=== PATIENT | female | born 1930 | race Caucasian/White ===

== ENCOUNTER 2017-03-18 13:23 | Inpatient (IN) | payer OTHER ==
[~2017-03-18] VITALS: Ht 157.5 cm; Wt 87.2 kg
[~2017-03-18 13:23] MED LIST: ADULT LOW DOSE81 M1 PO; ALEVE220 MG PO; AMLODIPINE BESYL5 MG PO; CALTRATE600 MG PO; CARVEDILOL12.5 MG PO; CARVEDILOL6.25 MG PO; CELEBREX200 MG PO; CRESTOR10 MG PO; DOCUSATE SODIU100 MG PO; ECOTRIN325 MG PO; FOSAMAX70 MG PO; HYDROCHLOROTHIA25 MG PO; HYDROCODON-ACE1 EA11 PO; LASIX40 MG PO; LATANOPROST2.5 ML BOTH EYES; PANTOPRAZOLE SO40 MG PO; POTASSIUM CHLO10 ME3 PO; TYLENOL REGULA325 MG PO
[2017-03-18 14:43] LABS: EOSINOPHIL COUNT 0.1 K/uL (0-0.3); HEMATOCRIT 34.9 % (36.0-46.0); IMMATURE GRANULOCYTE (%) 0.2 % (0.0-0.7); INSTRUMENT ABS NEUTROPHIL CT 3.7 K/uL; LYMPHOCYTE COUNT 0.6 K/uL (1.0-2.8); MCH 30.1 PG (29.0-34.0); MCHC 33.2 G/DL (30.0-36.0); MCV 90.4 FL (83-99); MEAN PLAT.VOLUME 8.9 uM^3 (9.5-12.4); MONOCYTE (%) 5.1 % (3-12); MONOCYTE COUNT 0.2 K/uL (0-0.8); NEUTROPHIL (%) 79.3 % (45-76); NEUTROPHIL COUNT 3.7 K/uL (1.8-6.4); PLATELET COUNT 171 K/uL (156-360); RBC DIS.WIDTH-CV 12.2 % (11.8-14.6); RBC DIS.WIDTH-SD 40.3 % (39-53); RED BLOOD COUNT 3.86 M/uL (3.80-5.20); WHITE BLOOD COUNT 4.7 K/uL (4.1-10.2)
[2017-03-18 14:53] LABS: INTER. NORMALIZED RATIO 1.1; PROTHROMBIN TIME 10.8 (9.2-11.2); PTT 27.8 (25-32)
[2017-03-18 14:54] LABS: CHLORIDE 100 mEq/L (99-109); POTASSIUM 5.8 mEq/L (3.7-5.4); SODIUM 133 mEq/L (136-147)
[2017-03-18 14:55] LABS: GLUCOSE 99 mg/dL (70-99)
[2017-03-18 14:57] LABS: ANION GAP 9 MEQ/L (2-14)
[2017-03-18 14:59] LABS: GFR ESTIMATE (CALCULATED) 41 mL/min/
[2017-03-18 15:00] LABS: UREA NITROGEN (BUN) 19 mg/dL (9-23)
[2017-03-18 15:04] LABS: TROP-I INTERPRETATION NEGATIVE; TROPONIN-I 0.04 ng/mL (0.0-0.30)
[2017-03-18] MEDS ORDERED: VITAMIN B-6100 MG PO (17:05)
[2017-03-18] MEDS ORDERED: LO-DOSE ASPIRIN81 M2 PO (17:05)
[2017-03-18 17:22] VITALS: BP 163/92
[2017-03-18 19:23] VITALS: BP 152/96
[2017-03-18 21:59] LABS: TROP-I INTERPRETATION POSITIVE; TROPONIN-I 0.62 ng/mL (0.0-0.30)
[2017-03-18 23:20] LABS: INTER. NORMALIZED RATIO 1.1; PROTHROMBIN TIME 11.4 (9.2-11.2); PTT 28.7 (25-32)
[2017-03-19] VITALS (10 sets, daily range): BP systolic 97–133; BP diastolic 59–91
[2017-03-19 02:42] LABS: TROP-I INTERPRETATION POSITIVE
[2017-03-19 07:23] LABS: INTER. NORMALIZED RATIO 1.1; PROTHROMBIN TIME 11.6 (9.2-11.2)
[2017-03-19 07:26] LABS: PTT 82.9 (25-32)
[2017-03-19 08:16] LABS: TROP-I INTERPRETATION POSITIVE; TROPONIN-I 0.63 ng/mL (0.0-0.30)
[2017-03-19 09:03] LABS: ALKALINE PHOSPHATASE 61 IU/L (3-129); ANION GAP 8 MEQ/L (2-14); CHLORIDE 95 MEQ/L (99-109); GFR ESTIMATE (CALCULATED) 38 mL/min/; GLUCOSE 110 mg/dL (70-99); LIPASE 49 U/L (1.0-51.0); SAMPLE HEMOLYSIS CHECK 0; SAMPLE ICTERIC CHECK 0; SAMPLE LIPEMIA CHECK 0; SODIUM 128 MEQ/L (136-147); TOTAL BILIRUBIN 1.9 MG/DL (0.0-1.0); UREA NITROGEN (BUN) 21 mg/dL (9-23)
[2017-03-19 09:04] LABS: POTASSIUM 4.3 MEQ/L (3.7-5.4)
[2017-03-19 10:27] LABS: EOSINOPHIL (%) 0 % (0-5); HEMATOCRIT 33.9 % (36.0-46.0); IMMATURE GRANULOCYTE (%) 0.3 % (0.0-0.7); INSTRUMENT ABS NEUTROPHIL CT 7.9 K/uL; LYMPHOCYTE COUNT 0.6 K/uL (1.0-2.8); MCH 29.8 PG (29.0-34.0); MCHC 32.7 G/DL (30.0-36.0); MCV 91.1 FL (83-99); MEAN PLAT.VOLUME 9.9 uM^3 (9.5-12.4); MONOCYTE (%) 6.6 % (3-12); MONOCYTE COUNT 0.6 K/uL (0-0.8); NEUTROPHIL (%) 86.8 % (45-76); NEUTROPHIL COUNT 7.9 K/uL (1.8-6.4); PLATELET COUNT 178 K/uL (156-360); RBC DIS.WIDTH-CV 12.2 % (11.8-14.6); RBC DIS.WIDTH-SD 40.7 % (39-53); RED BLOOD COUNT 3.72 M/uL (3.80-5.20); WHITE BLOOD COUNT 9.1 K/uL (4.1-10.2)
[2017-03-19 23:22] LABS: EOSINOPHIL (%) 2.2 % (0-5); EOSINOPHIL COUNT 0.1 K/uL (0-0.3); HEMATOCRIT 31.8 % (36.0-46.0); IMMATURE GRANULOCYTE (%) 0.4 % (0.0-0.7); INSTRUMENT ABS NEUTROPHIL CT 3.7 K/uL; LYMPHOCYTE COUNT 0.9 K/uL (1.0-2.8); MCH 30.2 PG (29.0-34.0); MCHC 33.6 G/DL (30.0-36.0); MCV 89.8 FL (83-99); MEAN PLAT.VOLUME 9.8 uM^3 (9.5-12.4); MONOCYTE (%) 10.3 % (3-12); MONOCYTE COUNT 0.6 K/uL (0-0.8); NEUTROPHIL (%) 69.7 % (45-76); NEUTROPHIL COUNT 3.7 K/uL (1.8-6.4); PLATELET COUNT 133 K/uL (156-360); RBC DIS.WIDTH-CV 12.2 % (11.8-14.6); RBC DIS.WIDTH-SD 40.3 % (39-53); RED BLOOD COUNT 3.54 M/uL (3.80-5.20); WHITE BLOOD COUNT 5.4 K/uL (4.1-10.2)
[2017-03-19 23:30] LABS: CHLORIDE 101 mEq/L (99-109); POTASSIUM 3.9 mEq/L (3.7-5.4); SODIUM 133 mEq/L (136-147)
[2017-03-19 23:32] LABS: GLUCOSE 83 mg/dL (70-99)
[2017-03-19 23:34] LABS: ANION GAP 9 MEQ/L (2-14); TOTAL BILIRUBIN 2.1 mg/dL (0.0-1.0)
[2017-03-19 23:36] LABS: ALKALINE PHOSPHATASE 58 IU/L (3-129); GFR ESTIMATE (CALCULATED) 41 mL/min/
[2017-03-19 23:37] LABS: UREA NITROGEN (BUN) 19 mg/dL (9-23)
[2017-03-20 01:00] VITALS: BP 102/65
[2017-03-20 04:46] VITALS: BP 108/64
[2017-03-20 07:17] VITALS: BP 124/76
[2017-03-20 08:18] LABS: EOSINOPHIL (%) 4.3 % (0-5); EOSINOPHIL COUNT 0.2 K/uL (0-0.3); HEMATOCRIT 31.1 % (36.0-46.0); IMMATURE GRANULOCYTE (%) 0.4 % (0.0-0.7); INSTRUMENT ABS NEUTROPHIL CT 3.1 K/uL; LYMPHOCYTE COUNT 0.8 K/uL (1.0-2.8); MCH 31.1 PG (29.0-34.0); MCHC 33.8 G/DL (30.0-36.0); MEAN PLAT.VOLUME 9.8 uM^3 (9.5-12.4); MONOCYTE (%) 10.2 % (3-12); MONOCYTE COUNT 0.5 K/uL (0-0.8); NEUTROPHIL (%) 67.9 % (45-76); NEUTROPHIL COUNT 3.1 K/uL (1.8-6.4); PLATELET COUNT 129 K/uL (156-360); RBC DIS.WIDTH-CV 12.7 % (11.8-14.6); RBC DIS.WIDTH-SD 42.4 % (39-53); RED BLOOD COUNT 3.38 M/uL (3.80-5.20); WHITE BLOOD COUNT 4.6 K/uL (4.1-10.2)
[2017-03-20 11:43] LABS: ALKALINE PHOSPHATASE 51 IU/L (3-129); ANION GAP 9 MEQ/L (2-14); GFR ESTIMATE (CALCULATED) 45 mL/min/; GLUCOSE 85 mg/dL (70-99); POTASSIUM 4.5 MEQ/L (3.7-5.4); SAMPLE HEMOLYSIS CHECK 0; SAMPLE ICTERIC CHECK 0; SAMPLE LIPEMIA CHECK 0; SODIUM 137 MEQ/L (136-147); TOTAL BILIRUBIN 1.9 MG/DL (0.0-1.0); UREA NITROGEN (BUN) 19 mg/dL (9-23)
[2017-03-20 11:44] LABS: CHLORIDE 105 MEQ/L (99-109)
[2017-03-20 11:47] VITALS: BP 120/71
[2017-03-20 15:30] LABS: INTER. NORMALIZED RATIO 1.2; PROTHROMBIN TIME 12.5 (9.2-11.2)
[2017-03-20 15:45] VITALS: BP 114/64
[2017-03-20 15:57] LABS: PTT 142.4 (25-32)
[2017-03-20 19:30] VITALS: BP 130/73
[2017-03-20 21:00] LABS: INTER. NORMALIZED RATIO 1.2
[2017-03-20 21:02] LABS: PTT 75.8 (25-32)
[2017-03-21] VITALS (8 sets, daily range): BP systolic 125–170; BP diastolic 64–89
[2017-03-21 03:44] LABS: HEMATOCRIT 30.5 % (36.0-46.0); MCH 30.2 PG (29.0-34.0); MCHC 32.8 G/DL (30.0-36.0); MCV 92.1 FL (83-99); MEAN PLAT.VOLUME 9.8 uM^3 (9.5-12.4); PLATELET COUNT 122 K/uL (156-360); RBC DIS.WIDTH-CV 12.4 % (11.8-14.6); RBC DIS.WIDTH-SD 41.8 % (39-53); RED BLOOD COUNT 3.31 M/uL (3.80-5.20)
[2017-03-21 13:00] LABS: ALKALINE PHOSPHATASE 53 IU/L (3-129); ANION GAP 8 MEQ/L (2-14); CHLORIDE 107 MEQ/L (99-109); GFR ESTIMATE (CALCULATED) 50 mL/min/; GLUCOSE 94 mg/dL (70-99); POTASSIUM 4.5 MEQ/L (3.7-5.4); SAMPLE HEMOLYSIS CHECK 1; SAMPLE ICTERIC CHECK 0; SAMPLE LIPEMIA CHECK 0; SODIUM 137 MEQ/L (136-147); TOTAL BILIRUBIN 1.5 MG/DL (0.0-1.0); UREA NITROGEN (BUN) 18 mg/dL (9-23)
[2017-03-22 03:26] LABS: CHLORIDE 108 mEq/L (99-109); POTASSIUM 4.2 mEq/L (3.7-5.4); SODIUM 136 mEq/L (136-147)
[2017-03-22 03:28] LABS: GLUCOSE 149 mg/dL (70-99)
[2017-03-22 03:29] LABS: ANION GAP 9 MEQ/L (2-14)
[2017-03-22 03:31] LABS: ALKALINE PHOSPHATASE 51 IU/L (3-129)
[2017-03-22 03:32] LABS: GFR ESTIMATE (CALCULATED) 45 mL/min/
[2017-03-22 03:33] LABS: UREA NITROGEN (BUN) 18 mg/dL (9-23)
[2017-03-22 03:35] LABS: TOTAL BILIRUBIN 1.2 mg/dL (0.0-1.0)
[2017-03-22 03:46] VITALS: BP 143/74
[2017-03-22 07:37] VITALS: BP 178/90
[2017-03-22 11:11] VITALS: BP 165/79
[2017-03-22 14:44] VITALS: BP 151/80
[2017-03-22] MEDS ORDERED: VALSARTAN160 MG PO (16:59)
[2017-03-22] MEDS ORDERED: URSODIOL300 MG PO (16:59)
[2017-03-22] MEDS ORDERED: CARVEDILOL3.125 MG PO (16:59)
[2017-03-22] MEDS ORDERED: NITROSTAT0.4 MG SL (16:59)
[2017-03-22 19:22] VITALS: BP 168/88
[2017-03-22 23:30] VITALS: BP 140/78
[2017-03-23 05:30] VITALS: BP 136/90
[2017-03-23 05:54] LABS: HEMATOCRIT 29.8 % (36.0-46.0); MCH 30.1 PG (29.0-34.0); MCHC 33.2 G/DL (30.0-36.0); MCV 90.6 FL (83-99); MEAN PLAT.VOLUME 9.9 uM^3 (9.5-12.4); RBC DIS.WIDTH-CV 12.4 % (11.8-14.6); RBC DIS.WIDTH-SD 41.4 % (39-53); RED BLOOD COUNT 3.29 M/uL (3.80-5.20); WHITE BLOOD COUNT 5.5 K/uL (4.1-10.2)
[2017-03-23 05:55] LABS: PLATELET COUNT 163 K/uL (156-360)
[2017-03-23 07:27] VITALS: BP 148/79
[2017-03-23 11:00] VITALS: BP 126/99
[2017-03-23] MEDS ORDERED: DIGOXIN125 MCG PO (11:09)
== END 2017-03-23 13:49 | disposition home health service (06) | DRG 444 ==
LOC: EME 13:23 → 5WEST 16:32 → EDOF 16:32 → 5WEST 17:12 → 4EAST 03-19 10:19 → 5WEST 03-19 10:19 → 4EAST 03-19 23:48
PROVIDERS: Emergency Medicine; Internal Medicine; Physician Assistant Medical; Specialist
PROC: 0F798DZ Dilation of Common Bile Duct with Intraluminal Device, Via Natural or Artificial Opening Endoscopic (ICD-10-PCS; principal; 2017-03-21)
DX: K80.51 Calculus of bile duct without cholangitis or cholecystitis with obstruction (principal); I21.4 Non-ST elevation (NSTEMI) myocardial infarction; I25.10 Atherosclerotic heart disease of native coronary artery without angina pectoris; I12.9 Hypertensive chronic kidney disease with stage 1 through stage 4 chronic kidney disease, or unspecified chronic kidney disease; N18.9 Chronic kidney disease, unspecified; I48.0 Paroxysmal atrial fibrillation; E87.1 Hypo-osmolality and hyponatremia; E87.5 Hyperkalemia; I49.5 Sick sinus syndrome; E78.5 Hyperlipidemia, unspecified; I42.9 Cardiomyopathy, unspecified; J42 Unspecified chronic bronchitis; K21.9 Gastro-esophageal reflux disease without esophagitis; M19.90 Unspecified osteoarthritis, unspecified site; H40.9 Unspecified glaucoma; I25.2 Old myocardial infarction; Z79.82 Long term (current) use of aspirin; Z82.49 Family history of ischemic heart disease and other diseases of the circulatory system; Z87.891 Personal history of nicotine dependence; Z91.81 History of falling; Z95.5 Presence of coronary angioplasty implant and graft; Z96.611 Presence of right artificial shoulder joint; Z96.642 Presence of left artificial hip joint; Z96.653 Presence of artificial knee joint, bilateral; R26.81 Unsteadiness on feet
CPT/HCPCS: 71010; 74176; 74181; 74328; 80048; 80053; 83690; 84484; 85025; 85025 91; 85027; 85610; 85730; 87081; 93005; 93306; 99202; 99281; 99285; C1757; C2625; G0378; J0360; J0690; J1100; J1160; J1200; J1644; J2405; J2710; J2765; J3010; J7030; J7120